=== PATIENT | female | born 1950 | race Caucasian/White ===

== ENCOUNTER 2025-06-09 15:13 | Outpatient (AMB) | payer MEDICARE, SELFPAY ==
--- OUTSIDE RECORDS SUMMARY | 2025-06-09 16:50 | XMS_ITS | Patient Health Record ---
Author Organization [facility] Sahara kari Tremaine Address [address] [place] [address] Care Team Providers Care Handbag Framer Name Role Phone Arthur Durant MD Primary Care Provider Kraan Perez Unavailable [phone] Reason For Referral No Information Medications Medication SIG (Take, Route, Frequency, Duration) Notes Start Date End Date Status Ibuprofen 600 600 MG 1 tablet as needed Orally every 6 hrs; Duration: 7 days 08/23/2011 Unknown Aspirin 81 MG 1 tablet Orally Once a day; Duration: 30 day(s) Not-Taking Calcium Unknown Metamucil Active Gabapentin Unknown Atorvastatin Calcium 20 MG Orally Once a day Active Flaxseed (Linseed) U nknown Calcium + D Active Percocet Unknown Carol prn Active Motrin Unknown Lisinopril 20 MG Orally Once a day Active Biotin Once a day Active Vitamin D Unknown Probiotic Active hydroCHLOROthiazide 25 MG Orally Once a day Active Social History Tobacco Use: Social History Observation Description Date Details (start date - stop date) Never Smoker NA - NA Tobacco Use/Smoking Question Answer Notes Are you a: nonsmoker Additional Findings: Tobacco Non-User Current no n-smoker Alcohol Screen Question Answer Notes Did you have a drink containing alcohol in the p ast year? No Points 0 Interpretation Negative Tobacco use other than smoking: Question Answer Notes Are you an other tobacco user? No Problems Problem Type SNOMED Code ICD Code Onset Dates Problem Status W/U Status Risk Notes Problem Primary osteoarthriti s, left ankle and foot (M19.072) Active confirmed Problem Acquired hammer toe of right foot (5030835541646 105) Other hammer toe(s) (acquired), right foot (M20.41) Active confirmed Problem Acquired hammer toe of left foot (2638776925853 103) Other hammer toe(s) (acquired), left foot (M20.42) Active confirmed Plan Of Treatment Pending Test Test Name Order Date X ray : Foot, right 2V 12/03/2014 X ray : Foot, left 3V 02/13/2019 X ray : Foot, right 3V 02/21/2012 X ray : Foot, right 3V 05/17/2012 [id number] Plate 12/03/2014 [id number] Plate 08/20/2011 [id number] 08/23/2011 43098- Debride <25 sq cm 09/29/2011 20292- Debride <25 sq cm 11/01/2011 [id number] SKIN/TISSUE 09/06/2011 Insurance Providers Payer Name Payer Address Payer Phone Subscriber Number Group Number Insured Name Patient Relationship to Insured Coverage Start Date Coverage End Date [facility] [address] [place] [address] [id number] Trixie Acevedo Self - patient is the insured Medical (General) History Medical History History ICD Code mumps measles chicken pox high blood pressure Cholesterol Onychomycosis 110.1 Onychomycosis 703.0 Ingrowing Nail 729.5 Pain in Limb 719.97 Arthritis - Degenerative 735.4 Hammer toe Surgical History Surgery Date(Month/Year) foot surgery 04/2011 Hospitalization History Reason Date(Month/Year) colonoscopy 11/28/14
--- OUTSIDE RECORDS SUMMARY | 2025-06-09 16:50 | XMS_ITS | Clinical Summary ---
Author Organization [facility] Address [address] [facility] [address] [place] [address] Phone Care Team Providers Care Lean Six Sigma Black Belt Name Role Phone Arthur Durant MD Primary Care Provider [phone] Lucy Atkinson Unavailable [phone] Delfin Galvan MD Unavailable [phone] Allergies No known active allergies Medications fexofenadine (CELE) 180 MG tablet Take 180 mg by mouth as needed. Active biotin 10 mg Tab daily. Act terri calcium carbonate-vitamin D3 1,500 mg (600 mg elemental)-200 units Tab daily. Active L.acid,ferm,laisha,rh a-B.bif,long 126 mg (2 billion cell) TaDE daily. Active TURMERIC ORAL Take by mouth 2 (two) times a day. Active ketoconazole 2 % cream Apply 1 application topically daily as needed. 08/05/20 Active metroNIDAZOLE (METROCREAM) 0.75 % cream Apply 1 application. topically 2 (two) times a day as needed. 08/05/20 Active acetaminophen (TYLENOL) 500 MG tablet Take 500 mg by mouth as needed for pain (specific location in comments). Active ibuprofen (ADVIL,MOTRIN) 600 MG tabletIndications: Primary osteoarthritis of both knees Take 1 tablet (600 mg total) by mouth every 6 (six) hours as needed for pain (specific location in comments). 50 tablet 1 06/12/20 Active Additional Information Patient taking differently:600 mg OralAs needed, pain (specific location in comments), Reported on 06/24/2024 valACYclovir (VALTREX) 1000 MG tabletIndications: prn Take 2 tablets (2,000 mg total) by mouth 2 (two) times a day. For 2 dosages Indications: prn 12 tablet 1 11/27/19 24 Active hydroCHLOROthiazid e 25 MG tabletIndications: Essential hypertension TAKE 1 TABLET BY MOUTH DAILY 90 tablet 3 10/18/19 25 Active atorvastatin (LIPITOR) 20 MG tabletIndications: Hyperlipidemia TAKE 1 TABLET BY MOUTH ONCE DAILY 90 tablet 3 10/18/19 25 Active lisinopril (PRINIVIL,ZESTRIL) 40 MG tabletIndications: Benign essential hypertension TAKE 1 TABLET BY MOUTH DAILY 90 tablet 3 10/18/19 25 Active triamcinolone acetonide 0.1 % creamIndications:C ontact dermatitis, unspecified contact dermatitis type, unspecified trigger Apply topically 2 (two) times a day. Apply to affected areas on neck/face/back (avoid face) 30 g 04/04/20 25 Active Active Problems Problem Noted Date Diagnosed Date Rash and other nonspecific skin eruption 023 Assessment & Plan (05/08/2023 4:20 PM EDT): The rashes there and its still itchy but it seems to be getting better. We can call in some prednisone 40 mg daily that will take down the itching and patient had already taken a thorough shower to remove any oils. She should take the prednisone at least 5 days but 7 days were prescribed. We both agree that most likely what ever she she was doing in the garden was part of the etiology, probably a poison sumac or poison sona. Elevated LFTs 11/29/2019 Overview (11/29/2019): chronic, mild Essential hypertension 06/08/2018 Hyperlipidemia 06/08/2018 Osteoarthritis 06/08/2018 Pure hypercholesterolemia 06/08/2018 Chronic pain of right knee 06/08/2018 Resolved Problems Problem Noted Date Diagnosed Date Resolved Date Obesity (BMI 30-39.9) 10/13/20172017 Encounters Date Type Department Care Team Description 05/12/2025 Telephone [facility] Internal Medicine [address] [facility] [place] [address] Arthur Durant MD Allergy referral 04/09/2025 Telephone [facility] Internal Medicine [address] [facility] [place] [address] Arthur Durant MD Dermatology referral 04/04/2025 12:00 PM EDT Telemedicine [facility] [address] [place] [address] Annie Lopez CNP Contact dermatitis, unspecified contact dermatitis type, unspecified trigger (Primary Dx) 04/04/2025 Telephone [facility] Internal Medicine [address] [place] [address] Arthur Durant MD Rash from Last 3 Months Immunizations Immunization Administration Dates Next Due COVID-19 (Pre-08/07) Pfizer Vaccine, mRNA, PF 12/11/2020,11/20/2020 Hepatitis B Adult 04/15/2010 INFLUENZA, SPLIT VIRUS, TRIV ALENT W/ PRESERVATIVE IM 06/29/2012 Influenza High-Dose Quadriva lent Preservative Free IM 08/03/2023,07/25/2022,08/02/2021,08/04 Influenza High-Dose Trivalen t Preservative Free IM 06/24/2024,08/17/2018,09/29/2017,08/27,09/15/2015,08/08/2014 Influenza Trivalent Adjuvant ed Preservative free IM 07/12/2019 Influenza trivalent preserva tive free intradermal 07/26/2013 Influenza, Unspecified Formulation 06/29/2010 Pneumococcal conjugate PCV13 12/04/2015 Pneumococcal polysaccharide PPSV23 08/08/2014, Td (adult) 5 Lf Tetanus Toxo id, PF, Adsorbed 05/16/2002 Tdap 07/24/2012 Zoster live 06/15/2013 Zoster recombinant 12/28/2020,08/04/2020 Family History Medical History Relation Comments Heart disease Father Cancer Mother Relation Status Comments Father (Age 68) Mother (Age 82) Social History Tobacco Use Types Packs/Day Years Used Date Smoking Tobacco: Never Smokeless Tobacco: Never Tobacco Cessation:Counseling Given: Not Answered Alcohol Use Standard Drinks/Week Comments Yes 0 (1 standard drink = 0.6 oz pur e alcohol) once a year maybe, rare Education Answer Date Recorded Are you interested in more education? Not on viral e 02/10/2023 Are you concerned about learning? Not on file 02/10/2023 No 02/10/2023 No 02/10/2023 Digital Access Answer Date Recorded No 03/11/2023 No 03/11/2023 Reliable internet access at home? Not on file 03/11/2023 Device with a working camera? Not on file Intimate Partner Violence Answer Date R ecorded Denied Basic Needs Not on file 06/18/2024 In the past 12 months have y ou been in a relationship with a person who hurts, threatens, or tries to control you? No 06/18/2024 Worried food would run out Not on file 06/18 In the past 12 months have y ou been in a relationship with a person who hurts, threatens, or tries to control you? No 06/18/2024 Comments No Sex and Gender Information Value Date Recorded Sex Assigned at Female 10/17/2021 8:13 AM EST Legal Sex Female 10:04 PM EDT Gender Identity Female 10/17/2021 8:13 AM EST Sexual Orientation Not on file Last Filed Vital Signs Vital Sign Reading Time Taken Comments Blood Pressure 162/86 12/23/2024 7:58 AM EDT taken with pt's BP cuff Pulse 64 12/23/2024 7:58 AM EDT taken with pt's BP cuff Temperature 36.4 C (97.5 F) 12/23/2024 7:50 AM EDT Respiratory Rate 16 06/24/2024 8:29 AM EDT Oxygen Saturation 96% 12/23/2024 7:5 0 AM EDT Inhaled Oxygen Concentration - - Weight 78.2 kg (172 lb 6.4 oz) 11/27/2023 9:40 AM EST Pt reports taken at [facility] on 11/25/23 Height 155.6 cm (5' 1.26 ) 12/23/2024 7 :50 AM EDT Body Mass Index 32.59 11/27/2023 9:40 AM EST Plan of Treatment Upcoming Encounters Date Type Department Care Team (Late st Contact Info) Description 07/16/2025 8:00 AM EDT Office Visit [facility] [place] Internal Medicine [address] [place] [address] Arthur Durant MD [address] [place] [address] Health Maintenance Due Date Last Done Comments HEPATITIS C SCREENING 1967 COLOGUARD 1994 FIT TEST 1994 FOBT 1994 SIGMOIDOSCOPY 1994 VIRTUAL COLONOSCOPY 1994 Adult Td,Tdap Booster 07/24/2022 07/24/2012, 002 COVID-19 VACCINE ( season) 2024 02/12/2022, 08/08/2021, 12/11/2020, Additional history exists RSV VACCINE (1 - 1-dose 75+ series) 2024 DEPRESSION SCREENING 06/23/2025 06/23/2024 BLOOD PRESSURE 06/25/2025 12/23/2024 CREATININE LEVEL 12/23/2025 12/23/2024, 07/2024, 11/27/2023, Additional history exists POTASSIUM LEVEL 12/23/2025 12/23/2024, 07/16, 11/27/2023, Additional history exists COLONOSCOPY 04/27/2028 04/27/2023, 05/15/2015 COLORECTAL CANCER SCREENING 04/27/2028 LIPID PANEL 07/25/2029 07/25/2024, 05/17, 06/07/2023, Additional history exists PNEUMOCOCCAL VACCINES (50+ years) Completed 12/04/2015, 08/08/2014, 12/16/2012 ZOSTER VACCINES Completed 12/28/2020, 07/17, 06/15/2013 OSTEOPOROSIS SCREENING INITIAL (ONE-TIME) Completed 06/24/2024, 01/28/2021, 05/19/2011 SMOKING STATUS SCREENING (Once After 26 Yrs) Completed 12/23/2024 HEPATITIS A VACCINES Aged Out No long er eligible based on patient's age to complete this topic HIB VACCINES Aged Out No longer eligi ble based on patient's age to complete this topic MENINGOCOCCAL VACCINES (ACWY) Aged Out No longer eligible based on patient's age to complete this topic MENINGOCOCCAL VACCINES (B) Aged Out N o longer eligible based on patient's age to complete this topic Medical Devices Not on file Procedures Procedure Name Priority Date/Time Associated Diagnosis Comments BASIC METABOLIC PANEL Routine 12/23/2024 8:49 AM EDT Essential hypertension LIPID PANEL Routine 07/25/2024 8:03 AM EDT Pure hypercholesterolemia BD DXA SCREENING Routine 06/24/2024 9:19 AM EDT Postmenopausal estrogen deficiency HM COLONOSCOPY FOR RESULT ENTRY ONLY Routine 04/27/2023 from Last 3 Months or Most Recently Relevant to Health Maintenance Results * (ABNORMAL) Basic metabolic panel (12/23/2024 8:49 AM EDT) SODIUM 140 133 - 146 mmol/L [facility] CHLORIDE 102 96 - 108 mmol/L [facility] POTASSIUM 4.1 3.3 - 5.1 mmol/L [facility] CO2 31 21 - 35 mmol/L [facility] BUN 16 6 - 19 mg/dL [facility] CREATININE 0.50 0.5 - 1.5 mg/dL [facility] GLUCOSE 101(H) 70 - 99 mg/dL [facility] CALCIUM 10.8(H) 8.4 - 10.3 mg/dL [facility] EGFR 98 >59 mL/min/1.7 3m2 [facility] Comment:Estimated glomerular filtration rate calculated using the CKD-EPI refit equation. ANION GAP 11 10 - 20 mmol/L [facility] Blood 12/23/2024 8:49 AM EDT 12/23/2024 8:52 AM EDT us Arthur Durant MD LAB BLOOD ORDERABLES Final Re sult [facility] [address] [place] [address] * (ABNORMAL) Lipid panel (07/25/2024 8:03 AM EDT) HDL 62 mg/dL [facility] Comment: Interpretation <40 mg/dL: Low HDL cholesterol (major risk factor for CHD) Greater than or equal to 60 mg/dL: High HDL cholesterol ( negative risk factor for CHD) HDL - cholesterol is affected by a number of factors, e.g. smoking, excerise, hormones, sex and age. CHOLESTEROL 142 0 - 240 mg/dL [facility] TRIGLYCERIDES 56 30 - 160 mg/dL [facility] LDL 69 50 - 129 mg/dL [facility] Comment: LDL levels in terms of risk for coronary heart disease: <100 mg/dL: Optimal 100-129 mg/dL: Near or above optimal 130-159 mg/dL: Borderline high 160-189 mg/dL: High >190 mg/dL: Very High CARDIAC RISK RATIO 2.3(L) 3.3 - 4.4 C [facility] Blood 07/25/2024 8:03 AM EDT 07/25/2024 8:07 AM EDT Arthur Durant MD LAB BLOOD ORDERABLES Final Re sult [facility] [address], [place] [id number] * COLONOSCOPY FOR RESULT ENTRY ONLY (04/27/2023) Arthur Durant MD HEALTH MAINTENANCE Edited Res ult - Final * OUTSIDE BONE DENSITY SCREENING (01/28/2021) BONE DENSITY SCREENING - EXTERNAL normal us Leticia De Leon MD HEALTH MAINTENANCE Final Result from Last 3 Months or Most Recently Relevant to Health Maintenance Insurance [employer] RE[employer]PLACEMENT ELAINA NEVAREZ [place] [employer] REPLACEMENT [employer] Advance Directives For more information, please contact: [phone] (9AM - 5PM [facility], Monday-Monday) Documents on File Type Date Recorded Patient Sill Worker Expl anation Healthcare Proxy 10/19/2017 8:20 AM [facility] Proxy Care Teams Lean Six Sigma Black Belt Relationship Specialty Start Date End Date Arthur Durant MD [address] [place] [address] PCP - General 08/01/17 Lucy Atkinson PA [address] [address] Director Of Event Sales 08/04/20 Delfin Galvan MD [address] [place] [address] Rheumatology 08/05/24 Additional Source Comments The information contained in this document represents components of the legal health record. It is not the complete legal health record.[facility]
== END 2025-06-10 13:56 | disposition home or self-care (01) ==
PROVIDERS: PCP Internal Medicine; Visit Provider Registered Nurse Emergency
DX: J30.89 Other allergic rhinitis (principal)
CPT/HCPCS: 95117; 95165

== ENCOUNTER 2025-07-09 15:16 | Outpatient (AMB) | payer MEDICARE, SELFPAY ==
--- OUTSIDE RECORDS SUMMARY | 2025-07-09 17:41 | XMS_ITS | Patient Health Record ---
Author Organization [facility] Penaloza Address [address] [place] [address] Care Team Providers Care Manager Statistical Name Role Phone Arthur Durant MD Primary Care Provider Karan Perez Unavailable [phone] Reason For Referral No Information Medications Medication [...] Problem Status W/U Status Risk Notes Problem Localized, primary osteoarthritis of the ankle and/or foot (672721832) Primary osteoarthrit is, left ankle and foot (M19.072) Active confirmed Problem Acquired hammer toe of right foot (3480319737641072) Other hammer toe(s) (acquired), right foot (M20.41) Active confirmed Problem Acquired hammer toe of left foot (9559492969970801) Other hammer toe(s) (acquired), left foot (M20.42) Active confirmed Plan Of Treatment Pending Test Test Name Order Date X ray : Foot, right 2V 12/03/2014 X ray : Foot, left 3V 02/13/2019 X ray : Foot, right 3V 02/21/2012 X ray : Foot, right 3V 05/17/2012 [id number] Plate 12/03/2014 [id number] Plate 08/20/2011 [id number] 08/23/2011 53821- Debride <25 sq cm 09/29/2011 88480- Debride <25 sq cm 11/01/2011 [id number] SKIN/TISSUE 09/06/2011 Insurance Providers Payer Name Payer Address Payer Phone Subscriber Number Group Number Insured Name Patient Relationship to Insured Coverage Start Date Coverage End Date [facility] [address] [place] [address] [id number] Trixie Acevedo Self - patient is the insured Medical (General) History Medical History History ICD Code mumps measles chicken pox high blood pressure Cholesterol Onychomycosis 110.1 Onychomycosis 703.0 Ingrowing Nail 729.5 Pain in Limb 719.97 Arthritis - Degenerative 735.4 Hammer toe Surgical History Surgery Date(Month/Year) foot surgery 04/2011 Hospitalization History Reason Date(Month/Year) colonoscopy 11/28/14
--- OUTSIDE RECORDS SUMMARY | 2025-07-09 17:41 | XMS_ITS | Clinical Summary ---
Author Organization [facility] Address [address] [facility] [address] [place] [address] Phone Care Team Providers Care Hay Buckler Name Role Phone Arthur Durant MD Primary Care Provider [phone] Lucy Atkinson Unavailable [phone] Delfin Galvan MD Unavailable [phone] Allergies No known active allergies Medications fexofenadine [...] Department Care Team Description 05/12/2025 Telephone [facility] Internal Medicine [address] [facility] [place] [address] Arthur Durant MD Allergy referral 04/09/2025 Telephone [facility] Internal Medicine [address] [place] [address] Arthur Durant MD Dermatology referral from Last 3 Months Immunizations Immunization Administration [...] Description 07/16/2025 8:00 AM EDT Office Visit [facility] [facility] Internal Medicine [address] [place] [address] Arthur Durant MD [address] [place] [address] Health Maintenance Due Date Last Done Comments HEPATITIS C SCREENING 1967 COLOGUARD 1994 FIT TEST 1994 FOBT 1994 SIGMOIDOSCOPY 1994 VIRTUAL COLONOSCOPY 1994 Adult Td,Tdap Booster 07/24/2022 07/24/2012, 002 RSV VACCINE (1 - 1-dose 75+ series) 2024 INFLUENZA VACCINE (#1) 2025 , 08/03/2023, 07/25/2022, Additional history exists COVID-19 VACCINE ( season) 2025 02/12/2022, 08/08/2021, 12/11/2020, Additional history exists DEPRESSION SCREENING 06/23/2025 06/23/2024 BLOOD PRESSURE 06/25/2025 [...] EDT) SODIUM 140 133 - 146 mmol/L [facility] CHLORIDE 102 96 - 108 mmol/L [facility] POTASSIUM 4.1 3.3 - 5.1 mmol/L [facility] CO2 31 21 - 35 mmol/L [facility] BUN 16 6 - 19 mg/dL [facility] CREATININE 0.50 0.5 - 1.5 mg/dL [facility] GLUCOSE 101(H) 70 - 99 mg/dL [facility] CALCIUM 10.8(H) 8.4 - 10.3 mg/dL [facility] EGFR 98 >59 mL/min/1.7 3m2 [facility] Comment:Estimated glomerular filtration rate calculated using the CKD-EPI refit equation. ANION GAP 11 10 - 20 mmol/L [facility] Blood 12/23/2024 8:49 AM EDT 12/23/2024 8:52 AM EDT us Arthur Durant MD LAB BLOOD ORDERABLES Final Re sult [facility] [address] [place] [address] * (ABNORMAL) Lipid panel (07/25/2024 8:03 AM EDT) HDL 62 mg/dL [facility] Comment: Interpretation <40 mg/dL: Low HDL cholesterol (major risk factor for CHD) Greater than or equal to 60 mg/dL: High HDL cholesterol ( negative risk factor for CHD) HDL - cholesterol is affected by a number of factors, e.g. smoking, excerise, hormones, sex and age. CHOLESTEROL 142 0 - 240 mg/dL [facility] TRIGLYCERIDES 56 30 - 160 mg/dL [facility] LDL 69 50 - 129 mg/dL [facility] Comment: LDL levels in terms of risk for coronary heart disease: <100 mg/dL: Optimal 100-129 mg/dL: Near or above optimal 130-159 mg/dL: Borderline high 160-189 mg/dL: High >190 mg/dL: Very High CARDIAC RISK RATIO 2.3(L) 3.3 - 4.4 C [facility] Blood 07/25/2024 8:03 AM EDT 07/25/2024 8:07 AM EDT Arthur Durant MD LAB BLOOD ORDERABLES Final Re sult [facility] [address] [place] [address] * COLONOSCOPY FOR RESULT ENTRY ONLY (04/27/2023) Arthur Durant MD HEALTH MAINTENANCE Edited Res ult - Final * OUTSIDE BONE DENSITY SCREENING (01/28/2021) [facility] Signature BONE DENSITY SCREENING - EXTERNAL normal Historical Provider HEALTH MAINTENANCE Final Result from Last 3 Months or Most Recently Relevant to Health Maintenance Insurance [employer] RE[employer] REPLACEMENT [employer]PLACEMENT [employer]ED HMO REPLACEMENT [employer] REPLACEMENT [employer] REPLACEMENT [employer]PLACEMENT Advance Directives For more information, please contact: [phone] (9AM - 5PM [facility], Monday-Monday) Documents on File Type Date Recorded Patient Survey Rodman Expl anation Healthcare Proxy 10/19/2017 8:20 AM [facility] Proxy Care Teams Hay Buckler Relationship Specialty Start Date End Date Arthur Durant MD [address] [place] [address] PCP - General 08/01/17 Lucy Atkinson PA [address] [place] [address] Fur Dressing Supervisor 08/04/20 Delfin Galvan MD [address] [place] [address] Rheumatology 08/05/24 Additional Source Comments The information contained in this document represents components of the legal health record. It is not the complete legal health record.[facility]
== END 2025-07-09 15:16 | disposition home or self-care (01) ==
LOC: HO.HMGAL 15:16
PROVIDERS: PCP Internal Medicine; Visit Provider Registered Nurse Emergency
DX: J30.89 Other allergic rhinitis (principal)
CPT/HCPCS: 95117; 95165

== ENCOUNTER 2025-08-04 15:25 | Outpatient (AMB) | payer MEDICARE, SELFPAY ==
--- OUTSIDE RECORDS SUMMARY | 2025-08-04 19:40 | XMS_ITS | Patient Health Record ---
Author Organization [facility] [place] Address [address] [place] [address] Care Team Providers Care Junior Loan Processor Name Role Phone Arthur Durant MD Primary Care Provider Karan Lyons Unavailable [phone] Reason For Referral No Information Medications Medication [...] primary osteoarthritis of the ankle and/or foot (061564624) Primary osteoarthrit is, left ankle and foot (M19.072) Active confirmed Problem Acquired hammer toe of right foot (6484015621411862) Other hammer toe(s) (acquired), right foot (M20.41) Active confirmed Problem Acquired hammer toe of left foot (3273306663771406) Other hammer toe(s) (acquired), left foot (M20.42) Active confirmed Plan Of Treatment Pending Test Test Name Order Date X ray : Foot, right 2V 12/03/2014 X ray : Foot, left 3V 02/13/2019 X ray : Foot, right 3V 02/21/2012 X ray : Foot, right 3V 05/17/2012 [id number] Plate 12/03/2014 [id number] Plate 08/20/2011 [id number] 08/23/2011 37148- Debride <25 sq cm 09/29/2011 68079- Debride <25 sq cm 11/01/2011 [id number] SKIN/TISSUE 09/06/2011 Insurance Providers Payer Name Payer Address Payer Phone Subscriber Number Group Number Insured Name Patient Relationship to Insured Coverage Start Date Coverage End Date [facility] [address] [place] [address] [phone] [id number] Trixie Acevedo Self - patient is the insured Medical (General) History Medical History History ICD Code mumps measles chicken pox high blood pressure Cholesterol Onychomycosis 110.1 Onychomycosis 703.0 Ingrowing Nail 729.5 Pain in Limb 719.97 Arthritis - Degenerative 735.4 Hammer toe Surgical History Surgery Date(Month/Year) foot surgery 04/2011 Hospitalization History Reason Date(Month/Year) colonoscopy 11/28/14
--- OUTSIDE RECORDS SUMMARY | 2025-08-04 19:40 | XMS_ITS | Clinical Summary ---
Author Organization [facility] Address [address] [place] [address] Phone Care Team Providers Care Hides Soaker Name Role Phone Arthur Durant MD Primary Care Provider [phone] Lucy Atkinson Unavailable [phone] Delfin Galvan MD Unavailable [phone] Allergies No known active allergies Medications fexofenadine (ECLE) 180 MG tablet Take 180 mg by [...] pain (specific location in comments), Reported on 07/16/2025 valACYclovir (VALTREX) 1000 MG tabletIndications: prn Take [...] Encounters Date Type Department Care Team Description 08/04/[address] [facility] Internal Medicine [address] [facility] [place] [address] Arthur Durant MD Referral 07/16/2025 9:02 AM EDT - 07/16/2025 11:59 PM EDT Hospital Encounter [facility] [address] [place] [address] Arthur Durant MD Discharge Disposition: Home or Self Care 07/16/2025 8:00 AM EDT Office Visit [facility] Internal Medicine [address] [facility] [place] [address] Arthur Durant MD Need for prophylactic vaccination and inoculation against influenza (Primary Dx); Pure hypercholesterolemia ; Vitamin D deficiency, unspecified; Essential hypertension; Impaired fasting blood sugar 07/16/2025 Orders Only [facility] Internal Medicine [address] [facility] [place] [address] ProviderLeticia MD 05/12/2025 Telephone [facility] Internal Medicine [address] [facility] [place] [address] Arthur Durant MD Allergy referral from Last 3 Months Immunizations Immunization Administration Dates Next Due COVID-19 (Pre-08/07) Pfizer Vaccine, mRNA, PF 12/11/2020,11/20/2020 Hepatitis B Adult 04/15/2010 INFLUENZA, SPLIT VIRUS, TRIV ALENT W/ PRESERVATIVE IM 06/29/2012 Influenza High-Dose Quadriva lent Preservative Free IM 08/03/2023,07/25/2022,08/02/2021,08/04 Influenza High-Dose Trivalen t Preservative Free IM 07/16/2025,06/24/2024,08/17/2018,09/29,08/27/2016,09/15/2015,08/08/2014 Influenza Trivalent Adjuvant ed Preservative free IM 07/12/2019 Influenza trivalent preserva tive free intradermal 07/26/2013 Influenza, Unspecified Formulation 06/29/2010 Pneumococcal conjugate PCV13 12/04/2015 Pneumococcal polysaccharide PPSV23 08/08/2014, RSV Vaccine (monovalent, adjuvanted) 12/26/2024 Td (adult) 5 Lf Tetanus Toxo id, PF, Adsorbed 05/16/2002 Tdap 12/26/2024,07/24/2012 Zoster live 06/15/2013 Zoster recombinant 12/28/2020,08/04/2020 Family [...] ecorded Denied Basic Needs Not on file 2025 In the past 12 months have y ou been in a relationship with a person who hurts, threatens, or tries to control you? No 2025 Worried food would run out Not on file 07/15 In the past 12 months have y ou been in a relationship with a person who hurts, threatens, or tries to control you? No 2025 Comments No Sex and Gender Information Value Date Recorded Sex Assigned at Female 10/17/2021 8:13 AM EST Legal Sex Female 10:04 PM EDT Gender Identity Female 10/17/2021 8:13 AM EST Sexual Orientation Not on file Last Filed Vital Signs Vital Sign Reading Time Taken Comments Blood Pressure 164/84 07/16/2025 8:02 AM EDT Pulse 61 07/16/2025 7:53 AM EDT Temperature 36.2 C (97.2 F) 07/16/2025 7:53 AM EDT Respiratory Rate 20 07/16/2025 7:5 3 AM EDT Oxygen Saturation 98% 07/16/2025 7:5 3 AM EDT Inhaled Oxygen Concentration - - Weight 78.2 kg (172 lb 6.4 oz) 11/27/2023 9:40 AM EST Pt reports [facility] on 11/25/23 Height 155 cm (5' 1.02 ) 07/16/2025 7:5 3 AM EDT Body Mass Index 32.59 11/27/2023 9:40 AM EST Plan of Treatment Upcoming Encounters Date Type Department Care Team (Late st Contact Info) Description 01/19/2026 8:30 AM EDT Office Visit [facility] Internal Medicine [address] [place] [address] Arthur Durant MD [address] [place] [address] [email or web address] 08/10/2026 9:00 AM EDT Office Visit [facility] Internal Medicine [address] [place] [address] Jhonny Pierce PA-C [address] [place] [address] [email or web address] Health Maintenance Due Date Last Done Comments HEPATITIS C SCREENING 1967 COLOGUARD 1994 FIT TEST 1994 FOBT 1994 SIGMOIDOSCOPY 1994 VIRTUAL COLONOSCOPY 1994 COVID-19 VACCINE ( season) 2025 02/12/2022, 08/08/2021, 12/11/2020, Additional history exists BLOOD PRESSURE 01/14/2026 07/16/2025 DEPRESSION SCREENING 2026 2025 CREATININE LEVEL 07/16/2026 07/16/2025, 07/2025, 07/25/2024, Additional history exists POTASSIUM LEVEL 07/16/2026 07/16/2025, 12/14, 07/25/2024, Additional history exists COLONOSCOPY 04/27/2028 04/27/2023, 05/15/2015 COLORECTAL CANCER SCREENING 04/27/2028 LIPID PANEL 07/16/2030 07/16/2025, 07/16, 06/07/2023, Additional history exists Adult Td,Tdap Booster 12/26/2034 12/26/2024 , 07/24/2012, 05/16/2002 PNEUMOCOCCAL VACCINES (50+ years) Completed 12/04/2015, 08/08/2014, 12/16/2012 ZOSTER VACCINES Completed 12/28/2020, 07/17, 06/15/2013 OSTEOPOROSIS SCREENING INITIAL (ONE-TIME) Completed 06/24/2024, 01/28/2021, 05/19/2011 RSV VACCINE Completed 12/26/2024 INFLUENZA VACCINE Completed 07/16/2025, , 08/03/2023, Additional history exists SMOKING STATUS SCREENING (Once After 26 Yrs) Completed 07/16/2025 HEPATITIS A VACCINES Aged Out No long [...] Procedure Name Priority Date/Time Associated Diagnosis Comments URINE SEDIMENT Routine 07/16/2025 9:26 AM EDT URINALYSIS W/REFLEX URINE CULTURE Routine 07/16/2025 9:26 AM EDT Essential hypertension COMPREHENSIVE METABOLIC PANEL Routine 07/16/2025 9:02 AM EDT Pure hypercholesterolemia Essential hypertension CBC AND DIFFERENTIAL Routine 07/16/2025 9:02 AM EDT Pure hypercholesterolemia Essential hypertension LIPID PANEL Routine 07/16/2025 9:02 AM EDT Pure hypercholesterolemia HEMOGLOBIN A1C Routine 07/16/2025 9:02 AM EDT Impaired fasting blood sugar TSH WITH REFLEX Routine 07/16/2025 9:02 AM EDT Essential hypertension 25-OH VITAMIN D Routine 07/16/2025 9:02 AM EDT Vitamin D deficiency, unspecified BD DXA SCREENING Routine 06/24/2024 9:19 AM EDT Postmenopausal estrogen deficiency HM COLONOSCOPY FOR RESULT ENTRY ONLY Routine 04/27/2023 from Last 3 Months or Most Recently Relevant to Health Maintenance Results * (ABNORMAL) Urinalysis w/reflex Urine Culture (07/16/2025 9:26 AM EDT) COLOR Yellow Yellow [facility] CLARITY Clear [facility] GLUCOSE Negative Negative [facility] BILI Negative Negative [facility] KETONES Negative Negative [facility] SPECIFIC GRAVITY 1.010 1.005 - 1.030 [facility] BLOOD Negative Negative [facility] PH 7.5 5.0 - 8.0 [facility] Protein-UA Negative Negative [facility] NITRITE Negative Negative [facility] Leukocyte esterase, ur Trace(A) Negative [facility] Urine (Urine) 07/16/2025 9:2 6 AM EDT 07/16/2025 9:30 AM EDT Arthur Durant MD URINE ORDERABLES Final Result Performing Organization Address [facility] de Phone Number [address] [address] * (ABNORMAL) Urine sediment (07/16/2025 9:26 AM EDT) WBC 0-4(A) NONE SEEN /hpf [facility] RBC NONE SEEN NONE SEEN /hpf [facility] URINE EPITHELIAL 0-4(A) NONE SEEN [facility] MUCUS NONE SEEN NONE SEEN /hpf [facility] BACTERIA Trace(A) NONE SEEN /hpf [facility] 07/16/2025 9:26 AM EDT 07/16/2025 9:30 AM EDT Arthur Durant MD URINE ORDERABLES Final Result Performing Organization Address City/[facility] Co de Phone Number [address] [address] * (ABNORMAL) Comprehensive metabolic panel (07/16/2025 9:02 AM EDT) SODIUM 136 133 - 146 mmol/L [facility] POTASSIUM 3.6 3.3 - 5.1 mmol/L [facility] CHLORIDE 98 96 - 108 mmol/L [facility] CO2 27 21 - 35 mmol/L [facility] BUN 12 6 - 19 mg/dL [facility] CREATININE 0.50 0.5 - 1.5 mg/dL [facility] GLUCOSE 94 70 - 99 mg/dL [facility] ALBUMIN 4.5 3.9 - 4.8 g/dL [facility] TOTAL PROTEIN 7.4 6.5 - 8.0 g/dL [facility] CALCIUM 9.6 8.4 - 10.3 mg/dL [facility] ALKALINE PHOSPHATASE 59 39 - 117 U/L [facility] TOTAL BILIRUBIN 0.6 0.0 - 1.2 mg/dL [facility] AST 38(H) 0 - 37 U/L [facility] ALT 36 0 - 40 U/L [facility] GLOBULIN 2.9 1 - 4.8 g/dL [facility] EGFR 97 >59 mL/min/1.7 3m2 [facility] Comment:Estimated glomerular filtration rate calculated using the CKD-EPI refit equation. ANION GAP 15 10 - 20 mmol/L [facility] Blood 07/16/2025 9:02 AM EDT 07/16/2025 9:10 AM EDT us Arthur Durant MD LAB BLOOD ORDERABLES Final Re sult [address] [address] * TSH with reflex (07/16/2025 9:02 AM EDT) TSH 2.44 0.27 - 4.20 uIU/mL [facility] Blood 07/16/2025 9:02 AM EDT 07/16/2025 9:10 AM EDT us Arthur Durant MD LAB BLOOD ORDERABLES Final Re sult [address] [address] * 25-OH vitamin D (07/16/2025 9:02 AM EDT) 25 OH VIT D (TOTAL) 38 30 - 60 ng/mL [facility] Blood 07/16/2025 9:02 AM EDT 07/16/2025 9:10 AM EDT us Arthur Durant MD LAB BLOOD ORDERABLES Final Re sult Performing Organization Address City/[facility]/ZIP Co de Phone Number [address] [address] * (ABNORMAL) CBC and differential (07/16/2025 9:02 AM EDT) WBC 5.74 4.00 - 11.00 K/uL [facility] RBC 4.49 4.00 - 5.20 M/uL [facility] HGB 14.7 12.0 - 16.0 g/dL [facility] HCT 43.4 36.0 - 46.0 % [facility] PLT 191 150 - 450 K/uL [facility] MCV 96.7 80.0 - 100.0 fL [facility] MCH 32.7(H) 27.0 - 31.0 pg [facility] MCHC 33.9 32.0 - 36.0 g/dL [facility] RDW 13.4 11.5 - 14.5 % [facility] MPV 10.2 8.4 - 12.0 fL [facility] NRBC 0.00 0.00 /100 WBCs [facility] ABSOLUTE NRBC 0.00 0.00 K/uL [facility] DIFF METHOD Auto [facility] NEUTS 65.6 48.0 - 76.0 % [facility] LYMPHS 20.2 18.0 - 41.0 % [facility] MONOS 9.6 4.0 - 11.0 % [facility] EOS 3.1 0.0 - 5.0 % [facility] BASOS 1.2 0.0 - 1.5 % [facility] Granulocytes, immature (%) 0.3 0.0 - 0.9 % [facility] ABSOLUTE NEUTS 3.76 1.92 - 7.60 K/uL [facility] ABSOLUTE LYMPHS 1.16 0.72 - 4.10 K/uL [facility] ABSOLUTE MONOS 0.55 0.16 - 1.10 K/uL [facility] ABSOLUTE EOS 0.18 0.00 - 0.50 K/uL [facility] ABSOLUTE BASOS 0.07 0.00 - 0.15 K/uL [facility] Granulocytes, immature 0.02 0.00 - 0.09 K/uL [facility] Blood 07/16/2025 9:02 AM EDT 07/16/2025 9:10 AM EDT us Arthur Durant MD LAB BLOOD ORDERABLES Final Re sult [address] [address] * Hemoglobin A1c (07/16/2025 9:02 AM EDT) HEMOGLOBIN A1C 5.2 4.3 - 5.8 % [facility] Blood 07/16/2025 9:02 AM EDT 07/16/2025 9:10 AM EDT Arthur Durant MD LAB BLOOD ORDERABLES Final Re sult [address] [address] * (ABNORMAL) Lipid panel (07/16/2025 9:02 AM EDT) HDL 65 mg/dL [facility] Comment: Interpretation <40 mg/dL: Low HDL cholesterol (major risk factor for CHD) Greater than or equal to 60 mg/dL: High HDL cholesterol ( negative risk factor for CHD) HDL - cholesterol is affected by a number of factors, e.g. smoking, excerise, hormones, sex and age. CHOLESTEROL 144 0 - 240 mg/dL [facility] TRIGLYCERIDES 50 30 - 160 mg/dL [facility] LDL 69 50 - 129 mg/dL [facility] Comment: LDL levels in terms of risk for coronary heart disease: <100 mg/dL: Optimal 100-129 mg/dL: Near or above optimal 130-159 mg/dL: Borderline high 160-189 mg/dL: High >190 mg/dL: Very High CARDIAC RISK RATIO 2.2(L) 3.3 - 4.4 C [facility] Blood 07/16/2025 9:02 AM EDT 07/16/2025 9:10 AM EDT Arthur Durant MD LAB BLOOD ORDERABLES Final Re [facility] [address] [place] [address] * COLONOSCOPY FOR RESULT ENTRY ONLY (04/27/2023) Arthur Durant MD HEALTH MAINTENANCE Edited Res ult - Final * OUTSIDE BONE DENSITY SCREENING (01/28/2021) [facility] BONE DENSITY SCREENING - EXTERNAL normal Historical Haley [facility]REA HEALTH MAINTENANCE Final Result from Last 3 Months or Most Recently Relevant to Health Maintenance Insurance [employer] ELAINA NEVAREZ [place] [employer] [place] [employer] RE[place] YOLANDA STAUFFER [place], [place] [employer] [place] [employer] [place] Advance Directives For more information, please contact: [phone] (9AM - 5PM [facility], Monday-Monday) Documents on File Type Date Recorded Patient Garbage Collector Driver Expl anation Healthcare Proxy 10/19/2017 8:[address] [facility] Proxy Care Teams Hides Soaker Relationship Specialty Start Date End Date Arthur Durant MD [address] [place] [address] PCP - General 08/01/17 Lucy Atkinson PA [facility] [address] Restaurant Managing Partner 08/04/20 Delfin Galvan MD [facility] [place] [address] Rheumatology 08/05/24 Additional Source Comments The information contained in this document represents components of the legal health record. It is not the complete legal health record.[facility]
--- OUTSIDE RECORDS SUMMARY | 2025-08-04 19:40 | XMS_ITS | Encounter Summary ---
Author Organization [facility] Address [address] [place] [address] Phone Care Team Providers Care Datastage Architect Name Role Phone Arthur Durant MD Primary Care Provider [phone] Lucy Atkinson Unavailable Delfin Galvan MD Unavailable [phone] Encounter Details Date Type Department Care Team (Late st Contact Info) Description 07/16/2025 Orders Only [facility] Internal Medicine [address] [place] [address] Provider, MD Leticia [address] [place] [address] Social History Tobacco Use Types Packs/Day Years Used Date Smoking Tobacco: Never Smokeless Tobacco: Never Alcohol Use Standard Drinks/Week Comments Yes 0 [...] AM EST Sexual Orientation Not on file documented as of this encounter Plan of Treatment Upcoming Encounters Date Type Department Care Team (Late st Contact Info) Description 01/19/2026 8:30 AM EDT Office Visit [facility] Internal Medicine [address] [place] [address] Arthur Durant MD [address] [place] [address] 08/10/2026 9:00 AM EDT Office Visit [facility] Internal Medicine [address] [place] [address] Jhonny Pierce PA-C [address] [place], [place] [id number] documented as of this encounter Visit Diagnoses Not on filedocumented in this encounter Additional Health Concerns Assessment Noted Time PHQ-2 Depression Total Score: 0 07/15/20 25 3:41 PM EDT documented as of this encounter Care Teams Datastage Architect Relationship Specialty Start Date End Date Arthur Durant MD [address] [place] [address] PCP - General 08/01/17 Lucy Atkinson PA [address] [address] Opto Mechanical Engineer 08/04/20 Delfin Galvan MD [address] [place] [address] Rheumatology 08/05/24 documented as of this encounter Additional Source Comments The information contained in this document represents components of the legal health record. It is not the complete legal health record.[facility]
--- OUTSIDE RECORDS SUMMARY | 2025-08-04 19:40 | XMS_ITS | Encounter Summary ---
Author Organization [facility] Address [address] [place] [address] Phone Care Team Providers Care Long Term Name Role Phone Arthur Durant MD Primary Care Provider [phone] Lucy Atkinson Unavailable [phone] Delfin Galvan MD Unavailable [phone] Reason for Visit * Reason Onset Date Comments Referral 08/04/2025 Encounter Details Date Type Department Care Team (Late st Contact Info) Description 08/04/2025 Telephone [facility] Internal Medicine [address] [place], [place] [id number] Arthur Durant MD [address] [place] [address] [email or web address] Referral Social History Tobacco Use Types Packs/Day Years [...] on file documented as of this encounter Progress Notes * Vicenta Peace - 08/04/2025 3:33 PM EDT Patient called looking for a referral for her allergy shot. This needs to be backdated to 06/09 with 99 visits. Referral pended. Order Name Diagnosis Ambulatory referral to External Allergy Referral Priority: Within 2 weeks Allergy, initial encounter (T78.40XA) Jacquelyn Coats Fax [phone] [facility] [phone] Order Comments: Previous patient of Dr. Olivo Reason for Referral: Allergy shots documented in this encounter Plan of Treatment Upcoming Encounters Date Type Department Care Team (Late st Contact Info) Description 01/19/2026 8:30 AM EDT Office Visit [facility] Internal Medicine [address] [place] [address] Arthur Durant MD [address] [place] [address] [email or web address] 08/10/2026 9:00 AM EDT Office Visit [facility] Internal Medicine [address] [place] [address] Jhonny Pierce PA-C [address] [place] [address] documented as of this encounter Visit Diagnoses Not on filedocumented in this encounter Additional Health Concerns Assessment Noted Time PHQ-2 Depression Total Score: 0 07/15/20 25 3:41 PM EDT documented as of this encounter Care Teams Long Term Relationship Specialty Start Date End Date Arthur Durant MD [address] [place] [address] PCP - General 08/01/17 Lucy Atkinson PA [address] [address] Atg Java Developer 08/04/20 Delfin Galvan MD [address] [place] [address] Rheumatology 08/05/24 documented as of this encounter Additional Source Comments The information contained in this document represents components of the legal health record. It is not the complete legal health record.[facility]
== END 2025-08-04 15:29 | disposition home or self-care (01) ==
LOC: HO.HMGAL 15:25
PROVIDERS: PCP Internal Medicine; Visit Provider Registered Nurse Emergency
DX: J30.89 Other allergic rhinitis (principal)
CPT/HCPCS: 95117; 95165

== ENCOUNTER 2025-09-01 14:55 | Outpatient (AMB) | payer MEDICARE, SELFPAY | END 2025-09-01 14:55 | disposition home or self-care (01) | LOC: HO.HMGAL 14:55 | PROVIDERS: PCP Internal Medicine; Visit Provider Registered Nurse Emergency | DX: J30.89 Other allergic rhinitis (principal) | CPT/HCPCS: 95117; 95165 ==

== ENCOUNTER 2025-10-01 14:58 | Outpatient (AMB) | payer MEDICARE, SELFPAY ==
--- OUTSIDE RECORDS SUMMARY | 2025-10-01 19:59 | XMS_ITS | Patient Health Record ---
Author Organization [facility] [place] Address [address] [place] [address] Care Team Providers Care Supervisor Estimator And Drafter Name Role Phone Arthur Durant MD Primary Care Provider Karan Lyons Unavailable [phone] Reason For Referral No Information Medications Medication [...] primary osteoarthritis of the ankle and/or foot (578393472) Primary osteoarthrit is, left ankle and foot (M19.072) Active confirmed Problem Acquired hammer toe of right foot (6902915923825906) Other hammer toe(s) (acquired), right foot (M20.41) Active confirmed Problem Acquired hammer toe of left foot (1390116265088365) Other hammer toe(s) (acquired), left foot (M20.42) Active confirmed Plan Of Treatment Pending Test Test Name Order Date X ray : Foot, right 2V 12/03/2014 X ray : Foot, left 3V 02/13/2019 X ray : Foot, right 3V 02/21/2012 X ray : Foot, right 3V 05/17/2012 [id number] Plate 12/03/2014 [id number] Plate 08/20/2011 [id number] 08/23/2011 07786- Debride <25 sq cm 09/29/2011 85100- Debride <25 sq cm 11/01/2011 [id number] SKIN/TISSUE 09/06/2011 Insurance Providers Payer Name Payer Address Payer Phone Subscriber Number Group Number Insured Name Patient Relationship to Insured Coverage Start Date Coverage End Date [facility] [address] [place] [address] [id number] Trixie Acevedo Self - patient is the insured Medical (General) History Medical History History ICD Code mumps measles chicken pox high blood pressure Cholesterol Onychomycosis 110.1 Onychomycosis 703.0 Ingrowing Nail 729.5 Pain in Limb 719.97 Arthritis - Degenerative 735.4 Hammer toe Surgical History Surgery Date(Month/Year) foot surgery 04/2011 Hospitalization History Reason Date(Month/Year) colonoscopy 11/28/14
--- OUTSIDE RECORDS SUMMARY | 2025-10-01 19:59 | XMS_ITS | Clinical Summary ---
Author Organization [facility] Address [address] [place] [address] Phone Care Team Providers Care Dairy Nutrition Specialist Name Role Phone Arthur Durant MD Primary Care Provider [phone] Lucy Atkinson Unavailable Delfin Galvan MD Unavailable [phone] Allergies No known active allergies Medications fexofenadine [...] Encounters Date Type Department Care Team Description 08/06/2025 Telephone [facility] [address] [place] [address] Arthur Durant MD Referral ([facility]) 08/04/2025 Telephone [facility] [address] [place] [address] Arthur Durant MD Referral 07/16/2025 9:02 AM EDT - 07/16/2025 11:59 PM EDT Hospital Encounter [facility] [address] [place] [address] Arthur Durant MD Discharge Disposition: Home or Self Care 07/16/2025 8:00 AM EDT Office Visit [facility] [address] [place] [address] Arthur Durant MD Need for prophylactic vaccination and inoculation against influenza (Primary Dx); Pure hypercholesterolemia ; Vitamin D deficiency, unspecified; Essential hypertension; Impaired fasting blood sugar 07/16/2025 Orders Only [facility] [address] [place] [address] Provider, MD Leticia from Last 3 Months Immunizations Immunization Administration [...] 7:53 AM EDT Respiratory Rate 20 07/16/2025 7:53 AM EDT Oxygen Saturation 98% 07/16/2025 7:5 [...] Description 01/19/2026 8:30 AM EDT Office Visit [facility] Primary Care [facility] [address] [place] [address] Arthur Durant MD [address] [place] [address] 08/10/2026 9:00 AM EDT Office Visit [facility] [address] [place] [address] Jhonny Pierce PA-C [address] [place] [address] [email or web address] Health Maintenance Due Date Last Done Comments HEPATITIS C SCREENING 1967 COLOGUARD 1994 FIT TEST 1994 FOBT 1994 SIGMOIDOSCOPY 1994 VIRTUAL COLONOSCOPY 1994 COVID-19 VACCINE ( season) 2025 02/12/2022, 08/08/2021, 12/11/2020, Additional history exists BLOOD PRESSURE 01/14/2026 07/16/2025 DEPRESSION SCREENING 2026 2025 CREATININE LEVEL 07/16/2026 07/16/2025, 07/2025, 07/25/2024, Additional history exists POTASSIUM LEVEL 07/16/2026 07/16/2025, 12/14, 07/25/2024, Additional history exists COLONOSCOPY 04/27/2030 04/27/2023, 05/15/2015 COLORECTAL CANCER SCREENING 04/27/2030 LIPID PANEL 07/16/2030 07/16/2025, 07/16, 06/07/2023, Additional [...] SEDIMENT Routine 07/16/2025 9:26 AM EDT URINALYSIS WITH REFLEX TO URINE CULTURE Routine 07/16/2025 9:26 AM EDT Essential hypertension COMPREHENSIVE METABOLIC PANEL (CMP) Routine 07/16/2025 9:02 AM EDT Pure hypercholesterolemia [...] (07/16/2025 9:26 AM EDT) COLOR Yellow Yellow [facility] CLARITY Clear [facility] GLUCOSE Negative Negative [facility] BILI Negative Negative [facility] KETONES Negative Negative [facility] SPECIFIC GRAVITY 1.010 1.005 - 1.030 [facility] BLOOD Negative Negative [facility] PH 7.5 5.0 - 8.0 [facility] Protein-UA Negative Negative [facility] NITRITE Negative Negative [facility] Leukocyte esterase, ur Trace(A) Negative [facility] Urine (Urine) 07/16/2025 9:2 6 AM EDT 07/16/2025 9:30 AM EDT Arthur Durant MD LAB URINE ORDERABLES Final Re sult Performing Organization Address [facility] Co de Phone Number [address] [address] * (ABNORMAL) Urine sediment (07/16/2025 9:26 AM EDT) WBC 0-4(A) NONE SEEN /hpf [facility] RBC NONE SEEN NONE SEEN /hpf [facility] URINE EPITHELIAL 0-4(A) NONE SEEN [facility] MUCUS NONE SEEN NONE SEEN /hpf [facility] BACTERIA Trace(A) NONE SEEN /hpf [facility] 07/16/2025 9:26 AM EDT 07/16/2025 9:30 AM EDT Arthur Durant MD LAB URINE ORDERABLES Final Re sult Performing Organization Address City/[facility]/ZIP Co de Phone Number [address] [address] * (ABNORMAL) Comprehensive metabolic panel (07/16/2025 9:02 AM EDT) SODIUM 136 133 - 146 mmol/L [facility] POTASSIUM 3.6 3.3 - 5.1 mmol/L [facility] CHLORIDE 98 96 - 108 mmol/L [facility] CO2 27 21 - 35 mmol/L [facility] BUN 12 6 - 19 mg/dL [facility] CREATININE 0.50 0.5 - 1.5 mg/dL [facility] GLUCOSE 94 70 - 99 mg/dL [facility] ALBUMIN 4.5 3.9 - 4.8 g/dL [facility] TOTAL PROTEIN 7.4 6.5 - 8.0 g/dL [facility] CALCIUM 9.6 8.4 - 10.3 mg/dL [facility] ALKALINE PHOSPHATASE 59 39 - 117 U/L [facility] TOTAL BILIRUBIN 0.6 0.0 - 1.2 mg/dL [facility] AST 38(H) 0 - 37 U/L [facility] ALT 36 0 - 40 U/L [facility] GLOBULIN 2.9 1 - 4.8 g/dL [facility] EGFR 97 >59 mL/min/1.7 3m2 [facility] Comment:Estimated glomerular filtration rate calculated using the CKD-EPI refit equation. ANION GAP 15 10 - 20 mmol/L [facility] Blood 07/16/2025 9:02 AM EDT 07/16/2025 9:10 AM EDT us Arthur Durant MD LAB BLOOD BKR ORDERABLES Erica l Result [facility] [address] [place] [address] * TSH with reflex (07/16/2025 9:02 AM EDT) TSH 2.44 0.27 - 4.20 uIU/mL [facility] Blood 07/16/2025 9:02 AM EDT 07/16/2025 9:10 AM EDT us Arthur Durant MD LAB BLOOD BKR ORDERABLES Erica l Result [address] [address] * 25-OH vitamin D (07/16/2025 9:02 AM EDT) 25 OH VIT D (TOTAL) 38 30 - 60 ng/mL [facility] Blood 07/16/2025 9:02 AM EDT 07/16/2025 9:10 AM EDT us Arthur Druant MD LAB BLOOD BKR ORDERABLES Erica erazo Result Performing Organization Address City/[facility]/ZIP Co de Phone Number [address] [address] * (ABNORMAL) CBC and differential (07/16/2025 9:02 AM EDT) WBC 5.74 4.00 - 11.00 K/uL [facility] RBC 4.49 4.00 - 5.20 M/uL [facility] HGB 14.7 12.0 - 16.0 g/dL [facility] HCT 43.4 36.0 - 46.0 % [facility] PLT 191 150 - 450 K/uL [facility] MCV 96.7 80.0 - 100.0 fL [facility] MCH 32.7(H) 27.0 - 31.0 pg [facility] MCHC 33.9 32.0 - 36.0 g/dL [facility] RDW 13.4 11.5 - 14.5 % [facility] MPV 10.2 8.4 - 12.0 fL [facility] NRBC 0.00 0.00 /100 WBCs [facility] ABSOLUTE NRBC 0.00 0.00 K/uL [facility] DIFF METHOD Auto [facility] NEUTS 65.6 48.0 - 76.0 % [facility] LYMPHS 20.2 18.0 - 41.0 % [facility] MONOS 9.6 4.0 - 11.0 % [facility] EOS 3.1 0.0 - 5.0 % [facility] BASOS 1.2 0.0 - 1.5 % [facility] Granulocytes, immature (%) 0.3 0.0 - 0.9 % [facility] ABSOLUTE NEUTS 3.76 1.92 - 7.60 K/uL [facility] ABSOLUTE LYMPHS 1.16 0.72 - 4.10 K/uL [facility] ABSOLUTE MONOS 0.55 0.16 - 1.10 K/uL [facility] ABSOLUTE EOS 0.18 0.00 - 0.50 K/uL [facility] ABSOLUTE BASOS 0.07 0.00 - 0.15 K/uL [facility] Granulocytes, immature 0.02 0.00 - 0.09 K/uL [facility] Blood 07/16/2025 9:02 AM EDT 07/16/2025 9:10 AM EDT us Arthur Durant MD LAB BLOOD BKR ORDERABLES Eriac l Result [address] [address] * Hemoglobin A1c (07/16/2025 9:02 AM EDT) HEMOGLOBIN A1C 5.2 4.3 - 5.8 % [facility] Blood 07/16/2025 9:02 AM EDT 07/16/2025 9:10 AM EDT us Arthur Durant MD LAB BLOOD BKR ORDERABLES Erica l Result [address] [address] * (ABNORMAL) Lipid panel (07/16/2025 9:02 AM EDT) HDL 65 mg/dL [facility] Comment: Interpretation <40 mg/dL: Low HDL cholesterol (major risk factor for CHD) Greater than or equal to 60 mg/dL: High HDL cholesterol ( negative risk factor for CHD) HDL - cholesterol is affected by a number of factors, e.g. smoking, excerise, hormones, sex and age. CHOLESTEROL 144 0 - 240 mg/dL [facility] TRIGLYCERIDES 50 30 - 160 mg/dL [facility] LDL 69 50 - 129 mg/dL [facility] Comment: LDL levels in terms of risk for coronary heart disease: <100 mg/dL: Optimal 100-129 mg/dL: Near or above optimal 130-159 mg/dL: Borderline high 160-189 mg/dL: High >190 mg/dL: Very High CARDIAC RISK RATIO 2.2(L) 3.3 - 4.4 [facility] Blood 07/16/2025 9:02 AM EDT 07/16/2025 9:10 AM EDT us Arthur Durant MD LAB BLOOD BKR ORDERABLES Erica l Result Performing Organization Address City/State/[facility] Co de Phone Number [address] [address] * COLONOSCOPY FOR RESULT ENTRY ONLY (04/27/2023) Arthur Durant MD HEALTH MAINTENANCE Edited Res ult - Final * OUTSIDE BONE DENSITY SCREENING (01/28/2021) [facility] BONE DENSITY SCREENING - EXTERNAL normal [...] Advance Directives For more information, please contact: [phone] (9AM - 5PM [facility], Monday-Monday) Documents on File Type Date Recorded Patient Student Loan Counselor Expl anation Healthcare Proxy 10/19/2017 8:20 AM [facility] Proxy Care Teams Dairy Nutrition Specialist Relationship Specialty Start Date End Date Arthur Durant MD [address] [place] [id number] PCP - General 08/01/17 Lucy Atkinson PA [address] [place] [address] Telephone Betting Clerk 08/04/20 Delfin Galvan MD [address] [place] [address] Rheumatology 08/05/24 Additional Source Comments The information contained in this document represents components of the legal health record. It is not the complete legal health record.[facility]
== END 2025-10-01 14:58 | disposition home or self-care (01) ==
LOC: HO.HMGAL 14:58
PROVIDERS: PCP Internal Medicine; Visit Provider Registered Nurse Emergency
DX: J30.89 Other allergic rhinitis (principal)
CPT/HCPCS: 95117; 95165